=== PATIENT | female | born 1955 ===

== ENCOUNTER 2025-06-06 10:14 | Outpatient (AMB) | payer MEDICARE, MEDICAID, SELFPAY ==
--- NOTE | 2025-06-06 10:18 | A.PHYSOV_ITS ---
Vital Signs 06/06/25 10:36 Height 5 ft 4 in Weight 146 lb BMI 25.1 Intake Visit Reasons: MRI followup Intake Note: Patient is a 71 year old female here today for MRI review. Pain in back shoulder neck looking to get new pain medications heat is helping time to time Allergies No Known Allergies Allergy (Verified 06/03/25 12:40) HPI Comments Details: History of Present Illness The patient is a 69 year old female presenting for evaluation and management of chronic back and neck pain. She reports a pain level of 8/10 today, localized to the low back without radiation, and also involving the neck and shoulders. The pain is exacerbated by standing and straightening up, and her range of motion is limited. A recent MRI of her lumbar spine revealed disc bulges and arthritis, which is worse in the lower back, causing mild to moderate narrowing but no obvious pinched nerve or spinal cord compression. Past treatments include physical therapy, which reportedly worsened her symptoms and resulted in bed rest for three weeks. She has been taking baclofen and diclofenac, but feels they are not strong enough as she needs to supplement with Tylenol. She has received steroid shots in her hip previously but has never had injections in her back. She has no history of back surgery. Patient would like to consider injection for lumbar spine as well as further evaluation for her neck pain. Patient has failed conservative treatment by completing 6 week physician directed home exercise plan. Pain Description - Onset and Timing: The patient reports ongoing pain. - Quality and Character: The patient describes the sensation as hurting. - Primary Location: Pain is located in the low back, neck, and across the shoulders. - Radiation: The low back pain is localized and does not radiate. - Severity: The patient rates her current pain as an 8 out of 10. - Exacerbating Factors: Pain is worsened by standing, trying to straighten up, leaning back, and bending forward. - Functional Interference: The pain interferes with her ability to stand up straight and limits her forward flexion. Results - Lumbar Spine MRI: Findings show disc bulges and arthritis, which is more pronounced in the lower back, causing mild to moderate narrowing. - The MRI shows no obvious pinched nerve or spinal cord compression. [facility] Surgical History (Updated 06/03/25 @ 12:41 by Daily Valdez MA) History of back surgery Social History (Updated 06/03/25 @ 12:41 by Daily Valdez MA) Alcohol intake: current Alcohol intake frequency: holidays/special occasions only Patient Tobacco Use Status: Never used Tobacco Review of Systems Narrative Review of Systems - Musculoskeletal: Reports pain in the low back, neck, and across the shoulders. - Reports pain with standing and limited range of motion in her back. - Neurological: Denies radiation of low back pain. - Psychiatric: Reports anxiety related to medical procedures. Physical Exam Exam Exam: Physical Exam Cervical Spine: Examination of her cervical spine, there is no visible swelling or deformity. She is tender to the right upper trapezius. She has limited range of motion of her cervical spine at end range throughout. Special Tests: Axial Compression test: Negative Spurlings test: Negative Lhermitte's sign is Negative Upper Extremities: Full range of motion bilateral upper extremities. Equal three dimensional map modeler strength bilaterally. Neuro: Sensation: Intact to upper extremities bilateral to light touch Strength C5 (Elbow Flexion): 5/5 on the left and 5/5 on the right. C6 (Elbow Ext): 5/5 on the left and 5/5 on the right. C7 (Elbow Ext): 5/5 on the left and 5/5 on the right. C8 (Finger Flex): 5/5 on the left and 5/5 on the right. T1 (Finger Abd/Add): 5/5 on the left and 5/5 on the right. DTR: C5 (Biceps): Left 2 Right 2 C6 (Brachioradialis): Left 1 Right 1 C7 (Triceps): Left 2 Right 2 Schultz sign: Negative No pathologic clonus. No involuntary movement. Lumbar Spine: Examination of her lumbar spine, there is no visible swelling or deformity. She is tender to lower lumbar facets. She is otherwise nontender. Full range of motion of the lumbar spine. She does have an increase in pain with facet loading. Special Tests: Lhermittes sign was negative Heel Toe walk is normal Left straight leg raise: Negative Right straight leg raise: Negative Special tests Raudel test is negative Ganslen's test is negative SI Joint compression test negative Esperanza test negative Piriformis stretch is negative Lower Extremities: Full range of motion bilateral lower extremities. No calf pain or edema. Neuro: Sensation: Intact to lower extremities bilaterally Strength L2 (Psoas): 5/5 on the left and 5/5 on the right. L3 (Quads): 5/5 on the left and 5/5 on the right. L4 (Ant tibialis): 5/5 on the left and 5/5 on the right. L5 (EHL) 5/5 on the left and 5/5 on the right. S1 (Gastroc): 5/5 on the left and 5/5 on the right. DTR L4: (Patellar) Left 2 Right 2 S1: (Achilles) Left 2 Right 2 Babinski Downgoing No pathologic clonus. No involuntary movement. Vital Signs: BMI result Body Mass Index 25.1 Assessment & Plan Assessment & Plan (1) Vertebrogenic low back pain: Code(s): M54.51 - Vertebrogenic low back pain Category: Medical (2) Cervicalgia: Code(s): M54.2 - Cervicalgia Category: Medical (3) Cervical spondylosis: Code(s): M47.812 - Spondylosis without myelopathy or radiculopathy, cervical region Category: Medical Plan Pain Management - Analgesia: The patient rates her current pain as an 8/10. - She is taking baclofen and diclofenac but finds them inadequately effective, requiring supplemental Tylenol. - The goal for procedural intervention (injections) is at least a 50% reduction in pain. - Activities of Daily Living: Pain interferes with her ability to stand and straighten up. - Adverse Effects: A prior trial of physical therapy reportedly worsened her pain. - Affect: The patient expresses anxiety regarding receiving injections and undergoing an MRI. - Aberrant Drug-Related Behaviors: No aberrant behaviors were noted or discussed. Plan Patient was informed and verbally consented to the use of an ambient scribe for clinic note documentation during this visit. 1. Low Back Pain The patient's chronic low back pain is attributed to lumbar arthritis and disc bulges identified on a recent MRI, which showed no significant nerve or spinal cord compression. Given that prior physical therapy exacerbated her symptoms and current medications provide insufficient relief, the plan is to proceed with lumbar facet joint injections with cortisone. Recommend bilateral L4-5, L5-S1 facet injection. The patient was counseled that the goal is at least a 50% reduction in pain for a duration of three to six months, and the injections are repeatable if effective. The procedure will be scheduled after obtaining insurance authorization. 2. Neck Pain To investigate the etiology of the patient's neck and shoulder pain, an MRI of the cervical spine will be ordered. An attempt will be made to track down results from a previous neck X-ray. The results of the cervical MRI will be reviewed at the follow-up visit scheduled after her lumbar injections. The potential for future cortisone injections in the neck, pending MRI results, was also discussed. 3. Procedural Anxiety The patient expressed anxiety about the upcoming procedures. She has one remaining lorazepam tablet at home from a prior prescription for an MRI. To manage her anxiety for the upcoming cervical spine MRI, a prescription for one additional lorazepam (Ativan) tablet will be sent. Discussion Notes I reviewed the patient's recent lumbar spine MRI results, explaining that her pain is likely from arthritis and disc bulges, and reassured her that there was no evidence of a pinched nerve or spinal cord compression. We discussed treatment options, noting that physical therapy had previously worsened her pain and her current medications were providing suboptimal relief. I recommended lumbar facet joint injections with cortisone, explaining that while not a cure, they could offer three to six months of relief with a goal of at least 50% pain reduction. I also mentioned that if the injections prove effective, nerve ablation could be a future option for longer-lasting relief. Regarding her neck pain, I recommended an MRI of the cervical spine to determine the cause, and explained that the low back injections would not affect her neck. The patient expressed anxiety about the planned procedures, so I will prescribe one tablet of lorazepam for her to take prior to her neck MRI. The patient agreed with the plan to obtain insurance authorization for the back injections and to order the neck MRI, with a follow-up to occur after the injection to review her progress and MRI results. Patient Instructions - We will order cortisone injections for your low back pain after getting approval from your insurance company. - Our office will call you to schedule the appointment, which will take a couple of weeks to arrange. - The goal of these shots is to reduce your pain by at least half for three to six months. - If they work well, you can choose to have them again in the future. - We will also order an MRI scan for your neck to figure out what is causing the pain there. - I am sending a prescription for one pill (lorazepam) for you to take to help with anxiety before your neck MRI. - We will schedule a follow-up visit after your back injections to see how you are feeling and to discuss the results of your neck MRI. Orders: Orders MR cervical spine wo con Today M54.12 - Radiculopathy, cervical region Medications: New lorazepam (Ativan) 1 tab 1 hour prior to MRI 1 mg PO DAILY PRN 1 tab 0RF anxiety 1 day F40.240 - Claustrophobia Coding Level of Care Code Tele New Pt Level 4 (69078) Diagnoses Vertebrogenic low back pain M54.51 Cervicalgia M54.2 Cervical spondylosis M47.812
[2025-06-06 10:36] VITALS: BMI 25.1
== END 2025-06-06 11:06 | disposition home or self-care (01) ==
LOC: HO.HPHYS 10:14
PROVIDERS: PCP Internal Medicine; Visit Provider Physician Assistant
DX: M54.51 Vertebrogenic low back pain (principal); M54.2 Cervicalgia; M47.812 Spondylosis without myelopathy or radiculopathy, cervical region
CPT/HCPCS: 99204

== ENCOUNTER → 2025-06-06 10:14 | Outpatient (BNVA) | payer MEDICARE, OTHER, SELFPAY | PROVIDERS: PCP Internal Medicine; Visit Provider Physician Assistant | DX: M54.41 Lumbago with sciatica, right side (principal); M54.2 Cervicalgia; M47.812 Spondylosis without myelopathy or radiculopathy, cervical region | CPT/HCPCS: 99202 ==